=== PATIENT | female | born 1980 | race Caucasian/White ===

== ENCOUNTER 2017-10-31 09:04 | Emergency (ER) | payer MEDICAID, OTHER ==
[~2017-10-31] VITALS: Ht 160 cm; Wt 56.4 kg
[~2017-10-31 09:04] MED LIST: NAPR-1154 PO; NEOM10SO7 OT; ONDA4TAB12 PO
[2017-10-31 09:17] VITALS: BP 128/93
[2017-11-03] MEDS ORDERED: GABA100C PO (12:21)
== END 2017-10-31 09:52 | disposition home or self-care (01) ==
LOC: ER 09:05
DX: S06.0X0A Concussion without loss of consciousness, initial encounter (principal); Z86.14 Personal history of Methicillin resistant Staphylococcus aureus infection; V49.9XXA Car occupant (driver) (passenger) injured in unspecified traffic accident, initial encounter; Y93.89 Activity, other specified; Y92.410 Unspecified street and highway as the place of occurrence of the external cause; Y99.8 Other external cause status
CPT/HCPCS: 99281

== ENCOUNTER → 2017-11-03 | Emergency (ER) | payer OTHER, MEDICAID ==
[~2017-11-03] VITALS: Ht 160 cm; Wt 55.0 kg
[~2017-11-03] MED LIST changes: +GABA100C PO
[2017-11-03 10:46] VITALS: BP 127/92
== END | disposition home or self-care (01) ==
LOC: ER 10:40
DX: M46.1 Sacroiliitis, not elsewhere classified (principal)
CPT/HCPCS: 72100; 99284

== ENCOUNTER 2018-05-18 09:19 | Emergency (ER) | payer MEDICAID, OTHER ==
[~2018-05-18] VITALS: Ht 160 cm; Wt 45.0 kg
[2018-05-18 09:24] VITALS: BP 144/99
[2018-05-18] MEDS ORDERED: SULF1TAB49 PO (09:39)
== END 2018-05-18 09:46 | disposition home or self-care (01) ==
LOC: ER 09:19
DX: L02.211 Cutaneous abscess of abdominal wall (principal); Z86.14 Personal history of Methicillin resistant Staphylococcus aureus infection; Z79.2 Long term (current) use of antibiotics; Z79.899 Other long term (current) drug therapy
CPT/HCPCS: 99283

== ENCOUNTER 2018-06-29 11:25 | Emergency (ER) | payer OTHER ==
[~2018-06-29] VITALS: Ht 161.3 cm; Wt 61.5 kg
[2018-06-29 11:44] VITALS: BP 127/86
[2018-06-29] MEDS ORDERED: CHLO473M3 PO (12:45)
[2018-06-29] MEDS ORDERED: TRAM50TA2 PO (12:45)
[2018-06-29] MEDS ORDERED: AMOX500C2 PO (12:45)
== END 2018-06-29 12:57 | disposition home or self-care (01) ==
LOC: ER 11:29
DX: K08.89 Other specified disorders of teeth and supporting structures (principal); F17.210 Nicotine dependence, cigarettes, uncomplicated; Z86.14 Personal history of Methicillin resistant Staphylococcus aureus infection; Z79.899 Other long term (current) drug therapy
CPT/HCPCS: 99283

== ENCOUNTER 2018-09-05 08:42 | Emergency (ER) | payer OTHER, MEDICAID ==
[~2018-09-05] VITALS: Ht 160 cm; Wt 60.0 kg
[~2018-09-05 08:42] MED LIST changes: +CHLO473M3 PO
[2018-09-05 08:56] VITALS: BP 133/92
== END 2018-09-05 10:42 | disposition home or self-care (01) ==
LOC: ER 08:44
DX: S00.03XA Contusion of scalp, initial encounter (principal); S00.412A Abrasion of left ear, initial encounter; V47.5XXA Car driver injured in collision with fixed or stationary object in traffic accident, initial encounter; Y93.89 Activity, other specified; Y92.488 Other paved roadways as the place of occurrence of the external cause; Y99.8 Other external cause status
CPT/HCPCS: 99281

== ENCOUNTER 2018-11-30 12:21 | Emergency (ER) | payer MEDICAID, OTHER ==
[~2018-11-30] VITALS: Ht 162.6 cm; Wt 60.5 kg
[2018-11-30] MEDS ORDERED: ketorolac trometh inj. 60 MG/2 ML VIAL IM ONE (13:00)
[2018-11-30] MEDS ORDERED: CYCL-1 PO (13:10)
[2018-11-30] MEDS ORDERED: METH4TAB81 PO (13:10)
[2018-11-30 13:57] VITALS: BP 134/90
== END 2018-11-30 14:02 | disposition home or self-care (01) ==
LOC: ER 12:21
DX: M54.5 Low back pain (principal); G89.29 Other chronic pain; Z86.14 Personal history of Methicillin resistant Staphylococcus aureus infection; Z79.899 Other long term (current) drug therapy
CPT/HCPCS: 96372; 99283; J1885

== ENCOUNTER 2018-12-11 12:04 | Emergency (ER) | payer OTHER ==
[~2018-12-11] VITALS: Ht 160 cm; Wt 60.2 kg
[~2018-12-11 12:04] MED LIST changes: +CYCL-1 PO; +METH4TAB81 PO
[2018-12-11 12:06] VITALS: BP 143/103
[2018-12-11] MEDS: ketorolac trometh inj. 60 MG/2 ML VIAL IM ONE (13:24)
== END 2018-12-11 14:37 | disposition home or self-care (01) ==
LOC: ER 12:04
DX: R07.89 Other chest pain (principal); G89.29 Other chronic pain; Z79.899 Other long term (current) drug therapy
CPT/HCPCS: 71100; 96372; 99283; J1885

== ENCOUNTER 2019-02-05 10:42 | Emergency (ER) | payer SELFPAY ==
[~2019-02-05] VITALS: Ht 161.3 cm; Wt 58.2 kg
[2019-02-05 10:47] VITALS: BP 129/96
== END 2019-02-05 11:20 | disposition left against medical advice (07) ==
LOC: ER 10:43
DX: S01.91XA Laceration without foreign body of unspecified part of head, initial encounter (principal); Z53.21 Procedure and treatment not carried out due to patient leaving prior to being seen by health care provider; Y04.8XXA Assault by other bodily force, initial encounter; Y93.89 Activity, other specified; Y92.89 Other specified places as the place of occurrence of the external cause; Y99.8 Other external cause status

== ENCOUNTER 2019-07-30 14:19 | Emergency (ER) | payer MEDICAID ==
[~2019-07-30] VITALS: Ht 160 cm; Wt 63.0 kg
[2019-07-30 14:33] VITALS: BP 134/86
== END 2019-07-30 15:14 | disposition home or self-care (01) ==
LOC: ER 14:19
DX: R23.8 Other skin changes (principal); G89.29 Other chronic pain; Z86.14 Personal history of Methicillin resistant Staphylococcus aureus infection; Z72.89 Other problems related to lifestyle; Z79.899 Other long term (current) drug therapy
CPT/HCPCS: 99281

== ENCOUNTER 2022-06-29 20:36 | Emergency (ER) | payer MEDICAID ==
[~2022-06-29] VITALS: Ht 160 cm; Wt 81.0 kg
[~2022-06-29 20:36] MED LIST changes: +CLIN300C17 PO; +MELO15TA13 PO
[2022-06-29 20:51] VITALS: BP 121/88
[2022-06-29 21:13] LABS: CLARITY,URINE CLOUDY (Clear)
[2022-06-29 21:16] LABS: UA COLLECTION TYPE CLN CATCH MIDSTREAM
[2022-06-29 21:18] LABS: COLOR,URINE ORANGE (Yellow)
[2022-06-29 21:21] LABS: BACTERIA,URINE 2+ /HPF (Neg); RBC,URINE TNTC /HPF (0-2); WBC,URINE TNTC /HPF (0-4)
[2022-06-29 21:22] LABS: MUCUS STRANDS NONE SEEN /LPF (Neg); SQUAMOUS EPITHELIAL CELL,UR FEW /LPF (FEW); TRANSITIONAL EPI CELLS,URINE FEW /HPF; WBC CLUMPS,URINE MODERATE /HPF (NEGATIVE)
[2022-06-29] MEDS ORDERED: cephalexin 500mg capsule PO ONE (21:30)
[2022-06-29] MEDS ORDERED: CEPH500C82 PO (21:42)
== END 2022-06-29 22:01 | disposition home or self-care (01) ==
LOC: ER 20:37
DX: K42.9 Umbilical hernia without obstruction or gangrene (principal); M54.9 Dorsalgia, unspecified; N39.0 Urinary tract infection, site not specified; G89.29 Other chronic pain; Z79.899 Other long term (current) drug therapy; Z79.1 Long term (current) use of non-steroidal anti-inflammatories (NSAID); Z86.14 Personal history of Methicillin resistant Staphylococcus aureus infection
CPT/HCPCS: 81001; 99283

== ENCOUNTER 2022-11-02 21:53 | Emergency (ER) | payer MEDICAID ==
[~2022-11-02] VITALS: Ht 160 cm; Wt 86.4 kg
[2022-11-02 22:05] VITALS: BP 145/93
[2022-11-02] MEDS ORDERED: OXYC-150 PO (23:20)
[2022-11-02] MEDS ORDERED: AMOX-580 PO (23:20)
[2022-11-02] MEDS ORDERED: amox tr/potassium clavulanate 875/125mg TAB PO ONE (23:20)
[2022-11-02] MEDS: oxyCODONE/APAP 5-325mg tablet PO ONE ×2 (23:25→23:27)
== END 2022-11-02 23:30 | disposition home or self-care (01) ==
LOC: ER 21:53
DX: K08.89 Other specified disorders of teeth and supporting structures (principal); G89.29 Other chronic pain; Z86.14 Personal history of Methicillin resistant Staphylococcus aureus infection; Z72.89 Other problems related to lifestyle; Z79.899 Other long term (current) drug therapy
CPT/HCPCS: 99283

== ENCOUNTER 2022-11-27 13:13 | Emergency (ER) | payer MEDICAID ==
[~2022-11-27] VITALS: Ht 160 cm; Wt 86.4 kg
[~2022-11-27 13:13] MED LIST changes: +OXYC-150 PO
[2022-11-27 13:34] VITALS: BP 108/78
[2022-11-27] MEDS ORDERED: NAPR-56 PO (14:33)
[2022-11-27] MEDS ORDERED: AMOX-117 PO (14:33)
== END 2022-11-27 14:40 | disposition home or self-care (01) ==
LOC: ER 13:14
DX: K08.89 Other specified disorders of teeth and supporting structures (principal)
CPT/HCPCS: 99283

== ENCOUNTER 2023-03-06 17:39 | Emergency (ER) | payer MEDICAID ==
[~2023-03-06] VITALS: Ht 165.1 cm; Wt 94.1 kg
[2023-03-06 20:00] VITALS: BP 117/92; PULSE 84; RESP 19; O2SAT 99
--- NOTE | 2023-03-06 21:27 | NUR ---
pt came out to say that the "thing went down and I'm just going to leave." IV being removed.
== END 2023-03-06 21:28 | disposition left against medical advice (07) ==
LOC: ER 17:40
DX: R06.02 Shortness of breath (principal); Z53.21 Procedure and treatment not carried out due to patient leaving prior to being seen by health care provider
CPT/HCPCS: 93005; 99281

== ENCOUNTER 2024-05-03 10:54 | Emergency (ER) | payer MEDICAID ==
[~2024-05-03] VITALS: Ht 167.6 cm; Wt 76.5 kg
[~2024-05-03 10:54] MED LIST changes: +CHLO473M13 PO; -CHLO473M3 PO; +ONDA-243 PO; -ONDA4TAB12 PO
[2024-05-03 11:43] VITALS: BP 143/97; PULSE 78; RESP 16; O2SAT 96
== END 2024-05-03 14:14 | disposition home or self-care (01) ==
LOC: ER 10:55
DX: M54.2 Cervicalgia (principal); G89.29 Other chronic pain; Z79.899 Other long term (current) drug therapy
CPT/HCPCS: 72040; 99283